=== PATIENT | male | born 1990 | race African-American/Black ===

== ENCOUNTER 2021-12-07 00:05 | Emergency (ER) | payer BC, SELFPAY ==
[2021-12-07] VITALS (8 sets, daily range): BP systolic 140–185; BP diastolic 101–105; PULSE 72–73; RESP 16–18; TEMP 36.8; O2SAT 95–99
--- NOTE | ~2021-12-07 | XR_ITS ---
XR lumbar spine 2-3V 12/07/2021 01:29 Indication: Low back pain Procedure: 4 views lumbar spine Comparison: No prior studies for comparison. Findings: There is mild disc narrowing at L4-5 and L5-S1. There is facet hypertrophy at these levels with grade 1 degenerative spondylolisthesis at L4-5. No acute fracture, subluxation or dislocation. V ertebral body heights are maintained. Pedicles intact. Sacral foramen are symmetric. Impression: 1: Mild lumbar spondylosis. Reviewed, dictated and finalized at location A. Impression: 1: Mild lumbar spondylosis.
[2021-12-07] MEDS: diazePAM INJ (*CRX) 10 MG/2 ML SYRINGE 5 MG IV PUSH (01:05)
[2021-12-07] MEDS: MORPHINE SULFATE (*CRX) 4 MG/ML INJ IV PUSH (02:18)
--- NOTE | 2021-12-07 03:00 | ED.BACK ---
HPI - Back Pain/Injury General Chief Complaint: Back Pain/Injury Stated Complaint: back pain , felt pull/pop Time Seen by Provider: 12/07/21 00:48 History of Present Illness HPI Narrative: Patient is a 31-year-old male who presents ER with low back pain. Reports she was trying to move a refrigerator when he felt sudden onset pain. Pain is been increasing. Sudden onset tonight. No radiation down his legs or into his groin. No saddle anesthesia. No difficulty with urination/defecation. Pain back is worse with any type of movement including bending and twisting. Located in L3-L4 region bilaterally. Related Data Allergies Allergy/AdvReac Type Severity Reaction Status Date / Time No Known Allergies Allergy Verified 12/07/21 00:56 Review of Systems Constitutional: Constitutional: Denies chills, Denies fatigue and Denies fever(s) Gastrointestinal: Gastrointestinal: Denies abdominal pain and Denies constipation Genitourinary: Genitourinary: Denies oliguria and Denies urinary frequency Musculoskeletal: Musculoskeletal: Reports back pain, Denies arthralgias and Denies joint swelling Neurologic: Denies focal weakness and Denies numbness PMFSH Past Medical History Medical History (Updated 12/07/21 @ 03:07 by Rigo Howell MD) Healthy adult male Surgical History Surgical History (Updated 12/07/21 @ 03:07 by Rigo Howell MD) No pertinent past surgical history Exam Narrative: GENERAL: Well-appearing, well-nourished, and in no acute distress. HEAD: Normocephalic, atraumatic. CHEST: Clear to auscultation. No respiratory distress. HEART: Regular rate and rhythm. Normal peripheral pulses. ABDOMEN: Soft, nontender, nondistended. Back: No reproducible midline tenderness of the T/L-spine. There is paraspinal muscular tenderness L3-L4 region bilaterally without palpable spasm. No tenderness of the sacrum or at the SI region. EXTREMITIES: Moving lower extremities without issue. No edema. Gross sensation intact. NEURO: Alert and oriented x3. PSYCH: Normal mood and affect. Course Course Emergency Course: Patient initially treated with Tylenol and Valium given the fact that he took 1 g of naproxen prior to arrival. Educated patient and significant other on appropriate dosage and usage of naproxen they verbalized understanding. Pain mildly improved but patient is feeling uncomfortable still, morphine provided with significant improvement. Discharge home with anti-inflammatories muscle relaxers. Vital Signs Vital signs: Vital Signs Temperature 98.2 F 12/07/21 00:13 Pulse Rate 73 12/07/21 00:13 Respiratory Rate 18 12/07/21 00:13 Blood Pressure 185/104 H 12/07/21 00:13 Pulse Oximetry 98 12/07/21 00:13 Temperature 98.2 F 12/07/21 00:13 Pulse Rate 73 12/07/21 00:13 Respiratory Rate 18 12/07/21 00:13 Blood Pressure 185/104 H 12/07/21 00:13 Pulse Oximetry 98 12/07/21 00:13 MDM - Back Pain/Injury Imaging Data My impression: X-ray lumbar spine: No acute fracture. Vertebral body height and disc spaces preserved. Discharge Plan Discharge Clinical Impression: Strain of lumbar region Patient Disposition: Home, Self-Care Condition: Stable Instructions: Acute Low Back Pain (ED) Additional Instructions: Return to the ER if you have increased pain in your back, you develop lower extremity weakness/numbness/paralysis, you have numbness or tingling in your private parts, or you are unable to control your ability to urinate/stool. Follow-up with your primary care doctor. If additional imaging is required they will be able to order it. Prescriptions: New cyclobenzaprine 10 mg tablet 10 mg PO TID PRN (Reason: muscle spasm) Qty: 20 0RF naproxen 500 mg tablet 500 mg PO BID Qty: 14 0RF Follow-up/Referrals: Clay,Delroy Calderon MD [Primary Care Provider] - 1 Week Stand Alone Forms: Work/School Release IP
[2021-12-07] MEDS: KETOROLAC 30 MG/ML VIAL (*BKC) IM (05:04)
--- NOTE | 2021-12-07 05:40 | PC.NURSE ---
Patent stayed in room until after discharge because patient stated that back kept hurting worse after the medication. Patient at this time is unable to sit up fully because pain is severe to the patient. Patient continues to try and sit up in bed and keeps flopping back in the bed. Patient then given additional medication and ice for back. OBDULIO Palmer came into room to reassess the patient to make sure his condition had no change and talked to the patient about how this will affect him for a few days. Patient when leaving sat up in bed on his own slowly and stated, the pain feels a little better than before because I can sit up. Patient then turned and pivoted and took one step then went back to sitting in chair because he stated, I cannot walk with this pain this RN called for help and other RN Valente came to help with 2 security guards patient then stood up on own with just a stand by assist from all of us and walked 2-3 steps to get into his car. Patient only difficulty when getting to car was the pain from walking but other than that his ambulation was good. Patient took 2-3 steps with no problem other than pain.
== END 2021-12-07 05:55 | disposition home or self-care (01) ==
PROVIDERS: Emergency Provider Emergency Medicine; PCP Internal Medicine
DX: S39.012A Strain of muscle, fascia and tendon of lower back, initial encounter (principal); X50.0XXA Overexertion from strenuous movement or load, initial encounter
CPT/HCPCS: 72100; 96372; 96374; 96375; 99284; J0131; J1885; J2270; J3360